=== PATIENT | male | born 2000 | race Two or more races ===

== ENCOUNTER 2023-12-08 11:47 | Emergency (ER) | payer OTHER ==
[~2023-12-08] VITALS: Ht 177.8 cm; Wt 72.6 kg
[2023-12-08 13:41] LABS: HEMOGLOBIN 15.3 g/dL (13-16.00); MEAN CELL VOLUME 87.1 fL (80.0-100.00); MEAN CORPUSCULAR HEMOGLOBIN 29.5 pg (27.00-32.0); MEAN CORPUSCULAR HGB CONC 33.9 g/dl (32.0-36.0); PLATELET COUNT 228 K/uL (150-450); RED BLOOD COUNT 5.17 M/uL (4.00-6.00); RED CELL DISTRIBUTION WIDTH 13.4 % (11.5-14.5)
[2023-12-08 15:00] LABS: ALBUMIN 4.3 gm/dL (3.4-5.0); BILIRUBIN TOTAL 0.58 mg/dL (0.3-1.2); CALCIUM 9.5 mg/dL (8.5-10.1); CREATININE SERUM 0.79 mg/dL (0.70-1.30); GFR 123.81; GLOBULINA 3.3 G/DL (2.4-3.5); POTASSIUM 4.05 mEq/L (3.5-5.1); TOTAL PROTEIN 7.6 gm/dL (6.4-8.2)
[2023-12-08] MEDS ORDERED: PEPCID20 MG PO (16:29)
[2023-12-08] MEDS ORDERED: NEXIUM 24HR20 M1 PO (16:29)
== END 2023-12-08 16:37 | disposition home or self-care (01) ==
LOC: ER 11:48
PROVIDERS: General Practice
DX: K29.00 Acute gastritis without bleeding (principal)

== ENCOUNTER 2025-04-22 09:17 | Emergency (ER) | payer OTHER ==
[~2025-04-22] VITALS: Ht 180.3 cm; Wt 72.6 kg
[~2025-04-22 09:17] MED LIST: NEXIUM 24HR20 M1 PO; PEPCID20 MG PO
[2025-04-22 11:00] LABS: EOS # 0.24 (0.04-0.54); EOS % 4.6 % (0.7-7.0); HEMATOCRIT 44.7 % (40.1-51.0); HEMOGLOBIN 15.3 g/dL (13.7-17.5); LYMPH # 1.47 (1.18-3.74); LYMPH % 28.4 % (19.3-53.1); MEAN CORPUSCULAR HEMOGLOBIN 30.2 pg (25.6-32.2); MONO # 0.35 (0.24-0.82); MONO % 6.8 % (4.7-12.5); NEUT # 3.06 (1.56-6.13); PLATELET COUNT 252 K/uL (163-369); RED BLOOD COUNT 5.06 M/uL (4.63-6.08); RED CELL DISTRIBUTION WIDTH 12.6 % (11.6-14.4)
== END 2025-04-22 13:43 | disposition home or self-care (01) ==
LOC: ER 09:26
PROVIDERS: General Practice
DX: K21.9 Gastro-esophageal reflux disease without esophagitis (principal); R07.89 Other chest pain

== ENCOUNTER → 2025-09-28 | Emergency (ER) | payer OTHER ==
[~2025-09-28] VITALS: Ht 167.6 cm; Wt 68.0 kg
[~2025-09-28] MED LIST changes: +NORFLEX100MG PO; +ORPHENADRINE CITRATE 30 MG/ML AMPUL IM ONE; +ORPHENADRINE CITRATE 30 MG/ML AMPUL ONE
[2025-09-28 15:24] VITALS: BP 118/73; O2SAT 98
== END | disposition home or self-care (01) ==
LOC: ER 14:13
DX: M25.562 Pain in left knee (principal)